=== PATIENT | female | born 1960 | race Caucasian/White ===

== ENCOUNTER 2017-06-24 14:39 | Emergency (ER) | payer BC ==
[2017-06-24 15:30] VITALS: BP 172/101
--- NOTE | 2017-06-24 15:31 | UC ---
Complaint Female HPI - HPI Summary HPI Summary: 56 YEAR OLD FEMALE PRESENTS WITH COMPLAINS OF BACK PAIN AND BURNING WITH URINATION. - History Of Current Complaint Chief Complaint: UCGU Stated Complaint: POSS UTI,BACK PAIN Time Seen by Provider: 06/24/17 15:30 Hx Obtained From: Patient Severity Initially: Moderate Severity Currently: Moderate Pain Scale Used: 0-10 Numeric - 5 Character: Sharp - Allergies/Home Medications Allergies/Adverse Reactions: Allergies Allergy/AdvReac Type Severity Reaction Status Date / Time No Known Allergies Allergy Verified 06/24/17 15:29 Home Medications: Home Medications Amlodipine Besylate [Norvasc 5 mg tab] 5 mg PO DAILY 06/24/17 [History Confirmed 06/24/17] Meloxicam [Vivlodex] 10 mg PO BID PRN 06/24/17 [History Confirmed 06/24/17] PMH/Surg Hx/FS Hx/Imm Hx Previously Healthy: Yes - Surgical History Surgical History: None - Social History Alcohol Use: Rare Substance Use Type: None Smoking Status (MU): Never Smoked Tobacco - Immunization History Most Recent Influenza Vaccination: fall 2016 Review of Systems Constitutional: Negative Skin: Negative Eyes: Negative ENT: Negative Respiratory: Negative Cardiovascular: Negative Gastrointestinal: Negative Genitourinary: Dysuria, Frequency, Urgency Motor: Negative Neurovascular: Negative Musculoskeletal: Negative Neurological: Negative Psychological: Negative All Other Systems Reviewed And Are Negative: Yes Physical Exam Triage Information Reviewed: Yes Vital Signs: Initial Vital Signs Temp 36.4 C 06/24/17 15:25 Pulse 75 06/24/17 15:25 Resp 16 06/24/17 15:25 BP 172/101 06/24/17 15:25 Pulse Ox 99 06/24/17 15:25 Vital Signs Reviewed: Yes Eye Exam: Normal ENT Exam: Normal Dental Exam: Normal Neck exam: Normal Neck: Positive: 1 Respiratory Exam: Normal Cardiovascular Exam: Normal Abdomen Description: Positive: CVA Tenderness (R), CVA Tenderness (L) Musculoskeletal Exam: Normal Neurological Exam: Normal Psychological Exam: Normal Skin Exam: Normal Complaint Female Dx - Differential Dx/Diagnosis Provider Diagnoses: CVA TENDERNESS. URINARY FREQUENCY Discharge - Discharge Plan Condition: Stable Disposition: HOME Prescriptions: Ciprofloxacin TAB* [Cipro 500 MG TAB*] 500 mg PO BID #14 tab Patient Education Materials: Urinary Tract Infection in Women (ED) Referrals: Lissett Vo MD [Primary Care Provider] -
--- NOTE | 2017-06-25 16:40 | ED ---
Progress - Progress Note Progress Note: NO CHANGE. Course/Dx - Diagnoses Provider Diagnoses: UTI (urinary tract infection)
== END 2017-06-24 16:00 | disposition home or self-care (01) ==
LOC: UCEAST 14:39
DX: M54.9 Dorsalgia, unspecified (principal); R35.0 Frequency of micturition
CPT/HCPCS: 81003; 87077; 87086; 87186; 99212; G0463